=== PATIENT | female | born 1970 | race African-American/Black ===

== ENCOUNTER 2022-11-05 14:06 | Emergency (ER) | payer MEDICAID ==
[~2022-11-05] VITALS: Ht 160 cm; Wt 62.6 kg
[2022-11-05 14:22] VITALS: BP 129/89; PULSE 85; RESP 16; TEMP 97.7; O2SAT 98
[2022-11-05] MEDS ORDERED: TORADOL IM STA (14:37)
[2022-11-05] MEDS ORDERED: TORADOL ONE (14:45)
[2022-11-05 15:13] VITALS: BP 114/72; PULSE 85; RESP 16; TEMP 98.2; O2SAT 97
== END 2022-11-05 15:18 | disposition home or self-care (01) ==
LOC: ER 14:06
DX: K04.7 Periapical abscess without sinus (principal)
CPT/HCPCS: 99283; 96372; J1885